=== PATIENT | male | born 1955 | race Caucasian/White ===

== ENCOUNTER 2017-04-29 09:30 | Emergency (ER) | payer BC ==
[2017-04-29] MEDS ORDERED: Ondansetron 4 MG/2 ML SDV IVPUSH ONE (09:46)
[2017-04-29] MEDS ORDERED: Sodium Chloride 0.9% 10 ML Syringe FLUSH PRN (09:46)
[2017-04-29] MEDS ORDERED: HYDROmorphone 1 MG/ML Syringe IVPUSH ONE (09:48)
[2017-04-29] MEDS ORDERED: Ketorolac 30 MG/ML SDV IVPUSH ONE (09:49)
[2017-04-29] MEDS ORDERED: Sodium Chloride 0.9% 1,000 ML IV SCH (10:00)
--- NOTE | 2017-04-29 11:04 | CT ---
CT abdomen and pelvis Technique: Multiple axial sections were obtained from above the kidneys inferiorly through the pubic symphysis. Intravenous and oral contrast not utilized. Study has been performed as a ureteral stone protocol. Comparison: No previous CT abdomen or pelvis exam. Findings: Several minimal calcifications within both kidneys are seen, uncertain if this represents nonobstructing calculi or slight calcifications within the renal pyramids. No ureteral dilatation or ureteral stone is seen. No bladder calculi are seen. Visualized portions of the liver and spleen appear within normal limits. Gallbladder contains no calcified gallstones. Adrenal glands show no nodule. Pancreas is within normal limits. Aorta shows no aneurysmal dilatation with mild atherosclerotic change. No retroperitoneal adenopathy or mesenteric abnormalities are seen. Appendix is seen which appears normal. Mild diverticulosis is noted within the sigmoid colon and descending colon without evidence of diverticulitis. No free fluid or inflammatory change is seen. Small fat-containing right inguinal hernia is noted. Bone window settings were reviewed which show severe disc space narrowing with vacuum phenomena and degenerative endplate sclerosis. Impression: 1. Several small calcifications within both kidneys as described above. No ureteral dilatation or ureteral stone is seen. 2. Other incidental findings as noted above. Diagnostic code #2
[2017-04-29] MEDS ORDERED: HYDROmorphone 0.5 MG/0.5 ML Syringe IVPUSH ONE (11:55)
--- NOTE | 2017-04-29 12:07 | EDM.PDOC ---
ED HPI GENERAL MEDICAL PROBLEM - General Chief Complaint: Flank Pain Stated Complaint: RIGHT FLANK PAIN Time Seen by Provider: 04/29/17 09:44 Source of Information: Reports: Patient History Limitations: Reports: No Limitations - History of Present Illness INITIAL COMMENTS - FREE TEXT/NARRATIVE: The patient presents wit right flank pain. This started 3 weeks ago on . He shoveled the day before. The pain will come and go and this morning it was severe. He has a history of kidney stones and he was worried it could be a stone. He has nausea but no vomiting. He has no dysuria , hematuria, or diarrhea. He has no numbness or weakness down his leg. Onset: Gradual Duration: Week(s): (3) Location: Reports: Back (right ) Quality: Reports: Sharp Severity: Severe Improves with: Reports: None Worsens with: Reports: None Associated Symptoms: Denies: Cough, Fever/Chills, Nausea/Vomiting, Shortness of Breath Flank Pain Score (Numeric/FACES): 9 - Related Data Allergies Allergy/AdvReac Type Severity Reaction Status Date / Time No Known Allergies Allergy Verified 04/29/17 09:41 Home Meds: Home Meds Metoprolol Succinate [Toprol XL] 25 mg PO DAILY 04/29/17 [History] metFORMIN HCl [Metformin HCl] 500 mg PO DAILY 04/29/17 [History] oxyCODONE HCl/Acetaminophen [Percocet 5-325 mg Tablet] 1 - 2 each PO Q6HR PRN # 20 tablet 04/29/17 [Rx] Past Medical History Cardiovascular History: Reports: Hypertension Genitourinary History: Reports: Renal Calculus Endocrine/Metabolic History: Reports: Diabetes, Type II Social & Family History - Tobacco Use Smoking Status *Q: Current Every Day Smoker Years of Tobacco use: 40 Packs/Tins Daily: 0.5 - Recreational Drug Use Recreational Drug Use: No ED ROS GENERAL - Review of Systems Review Of Systems: See Below Constitutional: Reports: No Symptoms HEENT: Reports: No Symptoms Respiratory: Reports: No Symptoms Cardiovascular: Reports: No Symptoms Endocrine: Reports: No Symptoms GI/Abdominal: Reports: Nausea. Denies: Abdominal Pain, Vomiting Musculoskeletal: Reports: Back Pain (Right flank pain) ED EXAM, RENAL/ - Physical Exam Exam: See Below Exam Limited By: No Limitations General Appearance: Alert, No Apparent Distress Ears: Normal External Exam Nose: Normal Inspection Head: Atraumatic, Normocephalic Neck: Normal Inspection Respiratory/Chest: No Respiratory Distress, Lungs Clear, Normal Breath Sounds Cardiovascular: Regular Rate, Rhythm, No Edema, No Murmur GI/Abdominal: Soft, Non-Tender, No Organomegaly, No Mass Back Exam: No: CVA Tenderness (L), CVA Tenderness (R) Extremities: Normal Inspection Neurological: Alert, Oriented, No Motor/Sensory Deficits Course - Vital Signs Last Recorded V/S: Last Vital Signs Temp 97.8 F 04/29/17 09:35 Pulse 80 04/29/17 09:35 Resp 16 04/29/17 09:35 BP 159/99 H 04/29/17 09:35 Pulse Ox 92 L 04/29/17 09:35 - Orders/Labs/Meds Orders: Active Orders 24 hr Category Date Time Status Peripheral IV Care [RC] . DIRECTED Care 04/29/17 09:47 Active UA W/MICROSCOPIC [URIN] Stat Lab 04/29/17 09:46 Uncollected Sodium Chloride 0.9% [Normal Saline] 1,000 ml Med 04/29/17 10:00 Active IV ASDIRECTED Sodium Chloride 0.9% [Saline Flush] Med 04/29/17 09:46 Active 10 ml FLUSH ASDIRECTED PRN ED Antiemetic Medication Reflex [OM.PC] Stat Oth 04/29/17 09:47 Ordered Peripheral IV Insertion Adult [OM.PC] Stat Oth 04/29/17 09:46 Ordered Medication Orders Sodium Chloride (Normal Saline) 1,000 mls @ 125 mls/hr IV ASDIRECTED NEIL Last Admin: 04/29/17 09:56 Dose: 125 mls/hr Sodium Chloride (Saline Flush) 10 ml FLUSH ASDIRECTED PRN PRN Reason: Keep Vein Open Last Admin: 04/29/17 09:55 Dose: 10 ml Labs: Laboratory Tests 04/29/17 04/29/17 Range/Units 09:40 09:40 WBC 12.12 H (4.23-9.07) K/mm3 RBC 4.83 (4.63-6.08) M/mm3 Hgb 14.5 (13.7-17.5) gm/L Hct 43.7 (40.1-51.0) % MCV 90.5 (79.0-92.2) fl MCH 30.0 (25.7-32.2) pg MCHC 33.2 (32.2-35.5) g/dl RDW Std Deviation 44.2 H (35.1-43.9) fL Plt Count 221 (163-337) K/mm3 MPV 11.2 (9.4-12.3) fl Neut % (Auto) 73.8 H (34.0-67.9) % Lymph % (Auto) 12.3 L (21.8-53.1) % Sargent % (Auto) 7.6 (5.3-12.2) % Eos % (Auto) 5.4 (0.8-7.0) Baso % (Auto) 0.5 (0.1-1.2) % Neut # (Auto) 8.95 H (1.78-5.38) K/mm3 Lymph # (Auto) 1.49 (1.32-3.57) K/mm3 Sargent # (Auto) 0.92 H (0.30-0.82) K/mm3 Eos # (Auto) 0.65 H (0.04-0.54) K/mm3 Baso # (Auto) 0.06 (0.01-0.08) K/mm3 Sodium 139 (136-145) mEq/L Potassium 4.0 (3.5-5.1) mEq/L Chloride 103 (98-107) mEq/L Carbon Dioxide 25 (21-32) mEq/L Anion Gap 15.0 (5-15) BUN 19 H (7-18) mg/dL Creatinine 1.3 (0.7-1.3) mg/dL Est Cr Clr Drug Dosing 58.46 mL/min Estimated GFR (MDRD) 56 (>60) mL/min BUN/Creatinine Ratio 14.6 (14-18) Glucose 139 H (74-106) mg/dL Calcium 9.1 (8.5-10.1) mg/dL Total Bilirubin 0.4 (0.2-1.0) mg/dL AST 19 (15-37) U/L ALT 33 (16-63) U/L Alkaline Phosphatase 57 (46-116) U/L Total Protein 8.0 (6.4-8.2) g/dl Albumin 4.2 (3.4-5.0) g/dl Globulin 3.8 gm/dL Albumin/Globulin Ratio 1.1 (1-2) Lipase 154 (73-393) U/L Meds: Medications Generic Name Dose Route Start Last Admin Trade Name Freq PRN Reason Stop Dose Admin Sodium Chloride 1,000 mls @ 125 mls/hr 04/29/17 10:00 04/29/17 09:56 Normal Saline IV 125 mls/hr ASDIRECTED NEIL Administration Sodium Chloride 10 ml 04/29/17 09:46 04/29/17 09:55 Saline Flush FLUSH 10 ml ASDIRECTED PRN Administration Keep Vein Open Discontinued Medications Generic Name Dose Route Start Last Admin Trade Name Freq PRN Reason Stop Dose Admin Hydromorphone HCl 1 mg 04/29/17 09:48 04/29/17 09:56 Dilaudid IVPUSH 04/29/17 09:49 1 mg ONETIME ONE Administration Hydromorphone HCl 0.5 mg 04/29/17 11:55 04/29/17 11:59 Dilaudid IVPUSH 04/29/17 11:56 0.5 mg ONETIME ONE Administration Ketorolac Tromethamine 30 mg 04/29/17 09:49 04/29/17 09:55 Toradol IVPUSH 04/29/17 09:50 30 mg ONETIME ONE Administration Ondansetron HCl 4 mg 04/29/17 09:46 04/29/17 09:55 Zofran IVPUSH 04/29/17 09:47 4 mg ONETIME ONE Administration - Re-Assessments/Exams Free Text/Narrative Re-Assessment/Exam: 04/29/17 12:07 I ordered an IV NS at 125mL/hr, labs, UA, CT of his abdomen and pelvis without contrast, dilaudid, zofrand and toradol. His WBC was 12.12. His lipase was negative. His CT shows several small calcifications within both kidneys. No uteteral dilatation or ureteral stone is seen. He feels a little better. This could be his back or he could have had a stone he passed. I will give him more dilaudid and some percocet for home. I will have him follow up with Dr Rendon. Departure - Departure Time of Disposition: 12:15 Disposition: Home, Self-Care 01 Condition: Good Clinical Impression: Bilateral kidney stones, Right flank pain - Discharge Information Prescriptions: oxyCODONE HCl/Acetaminophen [Percocet 5-325 mg Tablet] 1 - 2 each PO Q6HR PRN # 20 tablet PRN Reason: Pain Referrals: Seymour Rendon MD [Primary Care Provider] - Additional Instructions: Take the percocet as needed for pain. Follow up with Dr Rendon and please return if you are worse. - My Orders Last 24 Hours: My Active Orders 04/29/17 09:46 UA W/MICROSCOPIC [URIN] Stat Sodium Chloride 0.9% [Saline Flush] 10 ml FLUSH ASDIRECTED PRN Peripheral IV Insertion Adult [OM.PC] Stat 04/29/17 09:47 Peripheral IV Care [RC] . DIRECTED ED Antiemetic Medication Reflex [OM.PC] Stat 04/29/17 10:00 Sodium Chloride 0.9% [Normal Saline] 1,000 ml IV ASDIRECTED - Assessment/Plan Last 24 Hours: My Active Orders 04/29/17 09:46 UA W/MICROSCOPIC [URIN] Stat Sodium Chloride 0.9% [Saline Flush] 10 ml FLUSH ASDIRECTED PRN Peripheral IV Insertion Adult [OM.PC] Stat 04/29/17 09:47 Peripheral IV Care [RC] . DIRECTED ED Antiemetic Medication Reflex [OM.PC] Stat 04/29/17 10:00 Sodium Chloride 0.9% [Normal Saline] 1,000 ml IV ASDIRECTED
== END 2017-04-29 12:30 | disposition home or self-care (01) ==
LOC: JD.ED 09:30
DX: N20.0 Calculus of kidney (principal); F17.210 Nicotine dependence, cigarettes, uncomplicated; I10 Essential (primary) hypertension; E11.9 Type 2 diabetes mellitus without complications; Z79.84 Long term (current) use of oral hypoglycemic drugs; Z79.899 Other long term (current) drug therapy
CPT/HCPCS: 36415; 74176; 80053; 83690; 85025; 96361; 96374; 96375; 96376; 99284; J1170; J1885; J2405; J7040; J7050

== ENCOUNTER 2023-03-09 20:28 | Emergency (ER) | payer OTHER, MEDICARE ==
[2023-03-09] MEDS ORDERED: Sodium Chloride 0.9% 1,000 ML IV STA (20:50)
[2023-03-09] MEDS ORDERED: HYDROmorphone 0.5 MG/0.5 ML Syringe IVPUSH ONE ×2 (20:50→22:16)
[2023-03-09] MEDS ORDERED: Ondansetron 4 MG/2 ML SDV IVPUSH ONE (20:50)
[2023-03-09] MEDS: Sodium Chloride 0.9% 10 ML Syringe FLUSH PRN ×3 (21:03→22:18)
[2023-03-09 21:14] LABS: BASOPHILS PERCENT AUTO 0.1 % (0.0-1.0); EOSINOPHILS ABSOLUTE AUTO 0.1 K/mm3 (0.0-0.4); EOSINOPHILS PERCENT AUTO 0.4 % (0.0-6.0); HEMATOCRIT 42.2 % (42.0-52.0); HEMOGLOBIN 14.6 gm/dl (14.0-18.0); IMMATURE GRAN ABSOLUTE AUTO 0.06 K/mm3 (0.00-0.05); IMMATURE GRAN PERCENT AUTO 0.4 % (0.0-0.4); LYMPHOCYTES ABSOLUTE AUTO 1.5 K/mm3 (1.0-4.8); LYMPHOCYTES PERCENT AUTO 9.5 % (24.0-44.0); MEAN CORPUSCULAR HEMOGLOBIN 29.9 pg (28.0-32.0); MEAN CORPUSCULAR HGB CONC 34.6 g/dl (32.0-36.0); MEAN CORPUSCULAR VOLUME 86.3 fl (83.0-99.0); MONOCYTES ABSOLUTE AUTO 1.3 K/mm3 (0.0-0.8); MONOCYTES PERCENT AUTO 8.5 % (0.0-8.0); NEUTROPHILS ABSOLUTE AUTO 12.3 K/mm3 (1.8-7.7); NEUTROPHILS PERCENT AUTO 81.1 % (41.0-71.0); PLATELET COUNT,PLT 226 K/mm3 (150-400); RED BLOOD CELL COUNT 4.89 M/mm3 (4.52-5.90); WHITE BLOOD CELL COUNT,WBC 15.21 K/mm3 (3.9-11.3)
[2023-03-09 21:35] LABS: A/G RATIO 0.8 (1-2); ALBUMIN 3.6 g/dl (3.4-5.0); ANION GAP 11.5 (5-15); BILIRUBIN TOTAL 0.6 mg/dL (0.2-1.0); BUN/CREATININE RATIO 11.6 (14-18); C-REACTIVE PROTEIN 11.1 mg/dL (<1.0); CALCIUM 9.1 mg/dL (8.5-10.1); CREATININE 1.9 mg/dL (0.7-1.3); POTASSIUM,K 3.5 mEq/L (3.5-5.1); PROTEIN TOTAL,TP 8.1 g/dl (6.4-8.2)
[2023-03-09 21:52] LABS: APPEARANCE,URINE CLEAR (Clear); BILIRUBIN,URINE NEGATIVE (Negative); COLOR,URINE YELLOW (Yellow); GLUCOSE,URINE NEGATIVE (Negative); KETONES,URINE 1+ (Negative); LEUKOCYTE ESTERASE,URINE NEGATIVE (Negative); NITRITE,URINE NEGATIVE (Negative); OCCULT BLOOD,URINE 2+ (Negative); PH,URINE 6.5 (5.0-8.0); PROTEIN,URINE 3+ (Negative); UROBILINOGEN,URINE 0.2 (0.2-1.0)
[2023-03-09 22:07] LABS: BACTERIA,URINE FEW /hpf (FEW); MUCUS,URINE FEW /hpf (FEW); RBC,URINE 20-30 /hpf (0-5); SQUAMOUS EPITHELIAL CELLS,UR 0-5 /hpf (0-5); WBC,URINE 0-5 /hpf (0-5)
[2023-03-09] MEDS ORDERED: Iopamidol 612 MG/ML 100 ML Bottle IVPUSH ONE (22:22)
[2023-03-09 22:23] LABS: CORONAVIRUS COVID-19 NAA NEGATIVE (NEGATIVE); INFLUENZA A NAA NEGATIVE (NEGATIVE); RESPIRATORY SYNCYTIAL VIR NAA NEGATIVE (NEGATIVE)
[2023-03-09] MEDS ORDERED: cefTRIAXone 1 GM in Sodium Chloride 0.9% 100 ML IV ONE (22:59)
[2023-03-09 23:05] LABS: LACTIC ACID 0.4 mmol/L (0.4-2.0)
[2023-03-09] MEDS ORDERED: diphenhydrAMINE 50 MG/ML SDV IVPUSH ONE (23:21)
[2023-03-10] MEDS ORDERED: Naloxone 0.4 MG/ML SDV IVPUSH PRN ×2 (00:39→02:01)
[2023-03-10] MEDS ORDERED: HYDROmorphone 0.5 MG/0.5 ML Syringe IVPUSH ONE (00:39)
[2023-03-10] MEDS ORDERED: HYDROmorphone 1 MG/ML Syringe IVPUSH ONE (02:01)
== END 2023-03-10 02:17 ==
LOC: JD.ED 20:28
DX: N28.0 Ischemia and infarction of kidney (principal); N28.9 Disorder of kidney and ureter, unspecified; K56.7 Ileus, unspecified; I10 Essential (primary) hypertension; E11.9 Type 2 diabetes mellitus without complications; F17.210 Nicotine dependence, cigarettes, uncomplicated; Z20.822 Contact with and (suspected) exposure to COVID-19; Z88.8 Allergy status to other drugs, medicaments and biological substances; Z79.84 Long term (current) use of oral hypoglycemic drugs; Z79.899 Other long term (current) drug therapy
CPT/HCPCS: 0241U; 36415; 74177; 80053; 81001; 83605; 85025; 86140; 87040; 96361; 96365; 96375; 96376; 99285; J0696; J1170; J1200; J2405; J3490; J7030; Q9967; 99284